=== PATIENT | female | born 1950 | race Caucasian/White ===

== ENCOUNTER 2019-11-30 16:45 | Emergency (ER) | payer MEDICARE, OTHER ==
[2019-11-30] MEDS ORDERED: TORAdol 30 mg Injection IM ONE (17:02)
--- NOTE | 2019-11-30 17:12 | ERPHSYRPT ---
- History of Present Illness Time Seen by Provider: 11/30/19 17:05 Source: patient Exam Limitations: no limitations Patient Subjective Stated Complaint: pt to ER with complaints of L wrist injury. pt states she was burning brush and tripped and landed on her L wrist. Triage Nursing Assessment: pt ambulatory. pt A&Ox4. pt appears to be in pain. pt with some slight swelling to left wrist. Physician History: Patient is a 6-year-old female presents to our ED with complaint of left wrist pain. Patient slipped and fell today. Patient landed on her outstretched arm. She immediately felt pain. Her left wrist is swollen. Pain described as an ache that is well localized. No radiation. No other symptomology at this time. No BHT or LOC. No neck pain. Cervical spine cleared clinically. Patient voices no other complaints at this time. Occurred: just prior to arrival Method of Injury: fell Quality: constant Severity of Pain-Max: moderate Severity of Pain-Current: mild Extremities Pain Location: wrist: left Modifying Factors: Improves With: movement Associated Symptoms: none Allergies/Adverse Reactions: No Known Drug Allergies Allergy (Verified 11/30/19 17:02) Home Medications: Adalimumab [Humira] 40 mg SQ 2XW 11/30/19 [History] Chlorthalidone 25 mg PO DAILY 11/30/19 [History] Hx Tetanus, Diphtheria Vaccination/Date Given: No Hx Influenza Vaccination/Date Given: Yes Hx Pneumococcal Vaccination/Date Given: Yes Immunizations Up to Date: Yes Travel Risk - International Travel Have you traveled outside of the country in past 3 weeks: No - Coronavirus Screening Are you exhibiting any of the following symptoms?: No Close contact with a COVID-19 positive Pt in past 14-21 Days: No - Review of Systems Constitutional: No Fever, No Chills Eyes: No Symptoms Ears, Nose, & Throat: No Symptoms Respiratory: No Symptoms, No Cough, No Dyspnea Cardiac: No Symptoms, No Chest Pain, No Edema, No Syncope Abdominal/Gastrointestinal: No Symptoms, No Abdominal Pain, No Nausea, No Vomiting, No Diarrhea Genitourinary Symptoms: No Symptoms, No Dysuria Musculoskeletal: No Symptoms, No Back Pain, No Neck Pain Skin: No Symptoms, No Rash Neurological: No Symptoms, No Dizziness, No Focal Weakness, No Sensory Changes Psychological: No Symptoms Endocrine: No Symptoms Hematologic/Lymphatic: No Symptoms Immunological/Allergic: No Symptoms All Other Systems: Reviewed and Negative - Past Medical History Pertinent Past Medical History: Yes Musculoskeletal History: Arthritis, Osteoarthritis Other Medical History: HAS PSORIATIC ARTHRITIS AND TAKES ENBREL INJECTION 1X/WK AND ALSO METHOTREXATE - Past Surgical History Past Surgical History: Yes Musculoskeletal: Orthopedic Surgery - Social History Smoking Status: Never smoker Exposure to second hand smoke: No Drug Use: none Patient Lives Alone: Yes - Nursing Vital Signs Nursing Vital Signs: Initial Vital Signs Temperature 97.8 F 11/30/19 16:55 Pulse Rate 74 11/30/19 16:55 Respiratory Rate 16 11/30/19 16:55 Blood Pressure 149/80 11/30/19 16:55 O2 Sat by Pulse Oximetry 96 11/30/19 16:55 Pain Scale Pain Intensity 10 - Physical Exam General Appearance: alert Eyes, Ears, Nose, Throat Exam: moist mucous membranes Neck Exam: non-tender, supple Cardiovascular/Respiratory Exam: chest non-tender, normal breath sounds, regular rate/rhythm, no respiratory distress Abdominal Exam: non-tender, No guarding Back Exam: normal inspection, No vertebral tenderness Elbow/Forearm Exam: normal inspection Wrist Exam: bone tenderness, deformity, limited ROM (Right wrist is swollen. T here is a dinner fork deformity. Overlying soft tissue intact. No open or draining lesions. Cap refill less than 2 seconds. Compartments are soft. Extremities pink warm and well-perfused.), pain, soft tissue tenderness, swelling Hand Exam: normal inspection, non-tender, no evidence of injury, normal ROM Neuro/Tendon Exam: normal sensation, normal motor functions Mental Status Exam: alert, oriented x 3, cooperative Skin Exam: normal color, warm, dry SpO2 Interpretation: normal SpO2: 96 O2 Delivery: Room Air - Course Nursing assessment & vital signs reviewed: Yes - Radiology Exams Wrist X-ray Interpretation: Interpreted by me (impacted distal radius fracture with volar angulation) Ordered Tests: Active Orders 24 hr Category Date Time Status WRIST (MIN 3 VIEWS) Stat Exams 11/30/19 17:01 Taken Medication Summary Discontinued Medications Generic Name Dose Route Start Last Admin Trade Name Freq PRN Reason Stop Dose Admin Ketorolac Tromethamine 30 mg 11/30/19 17:02 11/30/19 17:15 Toradol 30 Mg Injection IM 11/30/19 17:03 30 mg STAT ONE Administration Ketorolac Tromethamine Confirm 11/30/19 17:15 Toradol 30 Mg Injection Administered 11/30/19 17:16 Dose 30 mg .ROUTE .STK-MED ONE - Progress Progress: improved Progress Note: 11/30/19 17:43 X-ray reveals a left distal radius fracture. Patient placed in a sugar tong splint. Patient also provided a left upper extremity shoulder sling. Patient neurovascularly intact post splint application. Patient given Toradol IM for pain control. Pain improved. Patient referred to orthopedic clinic for definitive management. Plan of care discussed with patient. Patient agrees to follow-up as discussed. Counseled pt/family regarding: diagnosis, need for follow-up, rad results - Departure Departure Disposition: Home Clinical Impression: Distal radius fracture, left, Fall Condition: Stable Critical Care Time: No Referrals: DAINA WHATLYE MD [Primary Care Provider] - Additional Instructions: Discharge/Care Plan ANAI PATRICK was seen on 11/30/19 in the Emergency Room. The patient was counseled regarding Diagnosis,Lab results, Imaging studies, need for follow up and when to return to the Emergency Room. Prescriptions given: Discharge Note I have spoken with the patient and/or caregivers. I have explained the patient's condition, diagnosis and treatment plan based on the information available to me at this time. I have answered the patient's and/or caregiver's questions and addressed any concerns. The patient and/or caregivers have as good understanding of the patient's diagnosis, condition and treatment plan as can be expected at this point. The vital signs have been stable. The patient's condition is stable and appropriate for discharge from the emergency department. The patient will pursue further outpatient evaluation with the primary care physician or other designated or consulting physician as outlined in the discharge instructions. The patient and/or caregivers are agreeable to this plan of care and follow-up instructions have been explained in detail. The patient and/or caregivers have received these instruction. The patient/and or caregivers are aware that any significant change in condition or worsening of symptoms should prompt an immediate return to this or the closest emergency department or call 911. Prescriptions: Ketorolac Tromethamine [Toradol] 10 mg PO TID 5 Days #15 tablet Outpatient Orders: Ortho Referral Time Frame: 1 Day, Facility: [facility]. Hosp, Location: ORTHO CLINIC
[2019-11-30] MEDS ORDERED: TORAdol 30 mg Injection ONE (17:15)
[2019-11-30 18:02] VITALS: BP 144/76; PULSE 76; O2SAT 98
--- NOTE | 2019-12-01 08:42 | XRAY ---
Indication: Pain following fall. Comparison: None 3 view left wrist demonstrates mildly displaced impacted distal radius fracture with intra-articular extension and soft tissue swelling. Query tiny displaced ulnar styloid tip fracture versus degenerative heterotopic ossification. Elsewhere osteopenia and moderate 1st metacarpal multangular scaphoid degenerative changes.
== END 2019-11-30 18:03 | disposition home or self-care (01) ==
LOC: ED 16:45
DX: S52.502A Unspecified fracture of the lower end of left radius, initial encounter for closed fracture (principal); W01.0XXA Fall on same level from slipping, tripping and stumbling without subsequent striking against object, initial encounter
CPT/HCPCS: 73110; 96372; 99284; J1885

== ENCOUNTER 2024-02-25 05:52 | Day surgery (SDC) | payer MEDICARE, OTHER ==
[2024-02-25 06:23] VITALS: RESP 16
[2024-02-25] MEDS: Lactated Ringers 1,000 ML IV SCH (06:31)
[2024-02-25] MEDS ORDERED: DIPRIVAN 200 MG/20 ML IV ONE ×2 (07:01→07:23)
[2024-02-25] MEDS ORDERED: Mylicon DROPS ONE (07:04)
[2024-02-25 08:04] VITALS: TEMP 98.7; O2SAT 98
[2024-02-25 08:20] VITALS: BP 138/92; PULSE 69
--- NOTE | 2024-02-26 12:03 | OP ---
SURGERY DATE/TIME: 02/25/2024 [id number] - [id number] PREOPERATIVE DIAGNOSIS: Screening colonoscopy. POSTOPERATIVE DIAGNOSIS: Normal colon. PROCEDURE PERFORMED: Colonoscopy. SURGEON: Connor Dougherty MD ANESTHESIA: MAC by ROBERTA Tracy. ESTIMATED BLOOD LOSS: None. SPECIMENS: None. DESCRIPTION OF PROCEDURE AND FINDINGS: After informed written consent was obtained, the patient was taken to the endoscopy suite. She was placed in the left lateral decubitus position and anesthesia was titrated to the desired level of consciousness. Digital rectal exam showed normal sphincter tone and no internal lesions. The scope was inserted in the rectum, and sequentially the entire colonic mucosa was traversed. The level of the cecum was reached and verified with direct visualization of the ileocecal valve. Upon withdrawal, careful mucosal inspection revealed no gross abnormalities. Prep was noted to be good. Prior to withdrawal, retroflexion showed no internal lesions. Scope was removed and patient was transferred to the recovery room in good condition. She has been advised routine 10-year followup which at her age would most likely be unnecessary at that time.
== END 2024-02-25 08:30 | disposition home or self-care (01) ==
LOC: SDC 05:52
PROVIDERS: ATTEND Family Medicine
DX: Z12.11 Encounter for screening for malignant neoplasm of colon (principal)
CPT/HCPCS: J2704; A9270-GY